=== PATIENT | female | born 1995 ===

== ENCOUNTER 2020-03-29 13:15 | Outpatient (CLI) | payer OTHER | END 2020-03-29 13:39 | disposition home or self-care (01) | LOC: NUCLEAR 13:15 | PROVIDERS: ATTEND Internal Medicine Hematology & Oncology | DX: D69.3 Immune thrombocytopenic purpura (principal) | CPT/HCPCS: 78215; A9541 ==

== ENCOUNTER 2020-07-03 16:28 | Inpatient (IN) | payer OTHER ==
[~2020-07-03] VITALS: Ht 165.1 cm; Wt 108.9 kg
--- NOTE | 2020-07-03 16:58 | NUR ---
PTE REFERIDO POR DR PITTS Y العراقي BORJES PLAQUETAS BAJAS PTE [place] POR NARIZ SE SUNG S/V YS EUBIAC EN AREA DE OBSERVACION
[2020-07-03] MEDS ORDERED: PREDNISONE20 M1 PO (17:52)
== END 2020-07-12 10:52 | disposition home or self-care (01) | DRG 813 ==
LOC: ER 16:28 → MEDJ 18:13 → SEC-K 18:13 → MEDJ 07-04 03:17 → ICU 07-07 21:30 → MEDJ 07-11 13:42
PROVIDERS: ADMIT Internal Medicine; ATTEND Internal Medicine
PROC: 30233N1 Transfusion of Nonautologous Red Blood Cells into Peripheral Vein, Percutaneous Approach (ICD-10-PCS; 2020-07-04)
PROC: 30233R1 Transfusion of Nonautologous Platelets into Peripheral Vein, Percutaneous Approach (ICD-10-PCS; 2020-07-04)
PROC: BW20Y0Z Computerized Tomography (CT Scan) of Abdomen using Other Contrast, Unenhanced and Enhanced (ICD-10-PCS; 2020-07-07)
PROC: BW40ZZZ Ultrasonography of Abdomen (ICD-10-PCS; 2020-07-07)
PROC: 30233L1 Transfusion of Nonautologous Fresh Plasma into Peripheral Vein, Percutaneous Approach (ICD-10-PCS; principal; 2020-07-08)
PROC: 30233M1 Transfusion of Nonautologous Plasma Cryoprecipitate into Peripheral Vein, Percutaneous Approach (ICD-10-PCS; 2020-07-08)
PROC: 30233K1 Transfusion of Nonautologous Frozen Plasma into Peripheral Vein, Percutaneous Approach (ICD-10-PCS; 2020-07-08)
PROC: BW30YZZ Magnetic Resonance Imaging (MRI) of Abdomen using Other Contrast (ICD-10-PCS; 2020-07-11)
PROC: BW24ZZZ Computerized Tomography (CT Scan) of Chest and Abdomen (ICD-10-PCS; 2020-07-11)
DX: D69.3 Immune thrombocytopenic purpura (principal); M35.8 Other specified systemic involvement of connective tissue; D50.0 Iron deficiency anemia secondary to blood loss (chronic); R04.0 Epistaxis; D57.3 Sickle-cell trait; M06.9 Rheumatoid arthritis, unspecified; R16.2 Hepatomegaly with splenomegaly, not elsewhere classified; Z20.828 Contact with and (suspected) exposure to other viral communicable diseases; D73.5 Infarction of spleen
CPT/HCPCS: 74185

== ENCOUNTER 2020-09-02 12:29 | Outpatient (CLI) | payer OTHER ==
[~2020-09-02 12:29] MED LIST: PREDNISONE20 M1 PO
== END 2020-09-02 12:34 | disposition home or self-care (01) ==
LOC: RAD 12:29
PROVIDERS: ATTEND General Practice
DX: M25.562 Pain in left knee (principal)

== ENCOUNTER 2025-03-28 07:16 | Outpatient (CLI) | payer OTHER | END 2025-03-28 07:17 | disposition home or self-care (01) | LOC: SONOGRAMA 07:16 | PROVIDERS: ATTEND Specialist | DX: Z01.419 Encounter for gynecological examination (general) (routine) without abnormal findings (principal); Z12.4 Encounter for screening for malignant neoplasm of cervix; Z30.09 Encounter for other general counseling and advice on contraception ==